=== PATIENT | male | born 1940 | race Caucasian/White ===

== ENCOUNTER 2020-04-07 17:48 | Outpatient (REF) | payer MEDICARE, MEDICAID, SELFPAY | END 2020-04-07 17:49 | disposition home or self-care (01) | LOC: HO.LNP 17:48 | PROVIDERS: Visit Provider Internal Medicine Hematology & Oncology | DX: Z20.822 Contact with and (suspected) exposure to COVID-19 (principal) | CPT/HCPCS: U0003 ==

== ENCOUNTER 2020-05-02 12:27 | Outpatient (REF) | payer MEDICARE, MEDICAID, SELFPAY | END 2020-05-02 12:28 | disposition home or self-care (01) | LOC: HO.LNP 12:27 | PROVIDERS: Visit Provider Internal Medicine Hematology & Oncology | DX: Z20.822 Contact with and (suspected) exposure to COVID-19 (principal) | CPT/HCPCS: U0003; U0005 ==

== ENCOUNTER 2020-11-08 12:24 | Outpatient (REF) | payer MEDICARE, MEDICAID, SELFPAY ==
[2020-11-08 13:47] LABS: Influenza A PCR NEGATIVE (Negative); Influenza B PCR NEGATIVE (Negative); Resp Syncy Virus RNA Qual PCR NEGATIVE (Negative); SARS COV2 PCR INHOUSE NEGATIVE (Negative)
== END 2020-11-08 12:25 | disposition home or self-care (01) ==
LOC: HO.LNP 12:24
PROVIDERS: Visit Provider Internal Medicine Hematology & Oncology
DX: Z20.822 Contact with and (suspected) exposure to COVID-19 (principal)
CPT/HCPCS: 0241U